=== PATIENT | female | born 1940 | race Caucasian/White ===

== ENCOUNTER → 2016-09-20 | Outpatient (CLI) | payer OTHER ==
[~2016-09-20] MED LIST: Amaryl2 MG PO; BUMETANIDE2 MG PO; ELIQUIS5 M1 PO; EXELON9.5 MG/24 TD; LANOXIN0.125 MG PO; METOPROLOL TART50 M1 PO; POTASSIUM CHLO10 ME4 PO; PROPAFENONE HC150 MG PO; SIMVASTATIN20 MG PO; VALIUM5 MG PO; ZYPREXA5 M1 PO; [UNRECOGNIZED DRUG - REMARK]
--- NOTE | ~2016-09-20 | PROC NOTE ---
[place], [place] PROCEDURE NOTE NAME: CHARLIE GALLARDO [facility] #: [id number] UNIT #: [id number] ROOM: DOCTOR: ROBERT AVELAR BIRTHDATE: [birth year] DOS: MODIFIED BARIUM SWALLOW BACKGROUND HISTORY AND MEDICAL HISTORY: The patient was accompanied by her daughter, who reported that the patient lives at home and does not leave the house often. Daughter reports she is on a regular diet, but that she noticed the patient coughed consistently during meals and especially in the night when she is sleeping. Daughter reports the patient eats well and maintains nutrition and hydration. Denies difficulty, but family reports she does cough with meal. Her daughter reports she might have had a mini TIA approximately 2 years ago, but patient was unaware and denied. Thus, daughter and patient deny any other neuro history. METHODS AND MATERIALS: The patient was seated upright in a chair. She was able to independently follow simple directions and administer thin liquids via cup and straw, pureed which was applesauce mixed with barium paste and a cracker. This patient was viewed in the lateral plane. The study was done in conjunction with Dr. Feldman. ORAL PHASE: The patient demonstrates mild to moderate oral weakness with ability to form and propel cohesive bolus on all consistencies. Minimal oral residue was noted, but she had good sensory awareness and it was not significant, it was more of a coating. The patient was able to adequately masticate with diagonal vertical mastication and form a bolus with solids. She had better control with thicker and solid consistencies as for as bolus formation and control to send it posteriorly from the oral to just pharyngeal phases. PHARYNGEAL PHASE: The patient demonstrated laryngeal penetration with all consistencies. It was transient with honey, puree and solid; however, with the thin liquid, it was a moderate amount of penetration, but a minimal amount stayed in laryngeal vestibule and fell below the vocal cords with patient immediately coughing and choking, which is considered aspiration. It was also suspected on nectar liquids as well; however, it was difficult as it may have been residue from the thin liquid. Laryngeal elevation and anterior movement were suspected to be the reason for the aspiration, which happened after the swallow, but the laryngeal penetration occurred during the swallow, which eventually fell below the cords and with aspiration with a thin and suspected with nectar liquid. A chin tuck did not decrease penetration and aspiration on the thin liquid. There was mild pharyngeal residue, but it was cleared minimally with cues for dry swallow, but it did not cause penetration and aspiration and was not judged to be dangerous to the patient's swallow. RECOMMENDATIONS AND IMPRESSION: It is recommended the patient to have extensive dysphagia therapy to improve oral motor and laryngeal elevation skills to decrease penetration and aspiration and increased base swallow and least restrictive diet. This was shared with patient and her daughter. The patient is also a candidate for the Sterling water protocol, which will be recommended to be implemented with dysphagia therapy. It is recommended to the patient and her [place], [place] PROCEDURE NOTE NAME: CHARLIE GALLARDO UNIT #: [id number] ROOM: DOCTOR: ROBERT AVELAR BIRTHDATE: [birth year] daughter and they were told to hold off until a phone call is made to physician and the contact physician regarding results of this study that the patient should have thickened liquids to a thick nectar to honey consistency in single small sip; however, hydration is the concern and a Sterling water protocol with skills therapy should be implemented as soon as possible. Regular diet is tolerated. There are no changes in solid food consistencies. The patient and daughter were educated regarding clinical signs and symptoms of pneumonia and they both denied the patient consistently gets pneumonia. The patient's daughter reported that she doubts the patient will comply for thickened liquids, but may comply for recommendations for therapy. Thank you for this referral. ROBERT AVELAR CM:PROCNOTE:PROCEDURE NOTE [id number] ROBERT AVELAR
== END | disposition home or self-care (01) ==
LOC: RAD/SH 07:30
DX: Z51.89 Encounter for other specified aftercare (principal); R13.10 Dysphagia, unspecified; R05 Cough; R09.89 Other specified symptoms and signs involving the circulatory and respiratory systems

== ENCOUNTER 2017-01-05 08:05 | Inpatient (IN) | payer OTHER ==
[~2017-01-05] VITALS: Ht 154.9 cm; Wt 84.0 kg
[2017-01-05] VITALS (11 sets, daily range): BP systolic 110–164; BP diastolic 31–57
--- NOTE | ~2017-01-05 | PR ---
[place], [place] PROGRESS NOTE [id number] #: [id number] ROOM: 410 DOCTOR: MAE ZUNIGA MD BIRTHDATE: [birth year] DOS: SUBJECTIVE: The patient is not doing . She is sitting up in her bed, eating her breakfast and she does not appear confused. OBJECTIVE: VITAL SIGNS: Graphic trend shows a pressure of 163/71, pulse of 73, respirations 20, temperature 98.0. LUNGS: Diminished breath sounds, clear. HEART: Irregular, controlled heart rate. ABDOMEN: Obese, soft. EXTREMITIES: Without any edema. ASSESSMENT AND PLAN: 1. Metabolic encephalopathy, possibly from underlying urinary tract infection. Urine culture is still pending. Urinalysis positive for nitrite and leukocyte, will add antibiotics. 2. Chronic atrial fibrillation with small vessel disease of the brain with adult failure to thrive. The patient will benefit from PT, OT. Social Service will be consulted for placement for a short term rehabilitation. MAE ZUNIGA MD CM:PNTRANS [id number] MAE ZUNIGA MD 01/06/17 0916 interface
--- NOTE | ~2017-01-05 | DS ---
[place], [place] DISCHARGE SUMMARY NAME: CHARLIE GALLARDO [facility] #: [id number] UNIT #: [id number] ROOM: 410 DOCTOR: VALENTINA ELLER MD BIRTHDATE: [birth year] DOS: 01/07/2017 DISCHARGE DIAGNOSES: 1. Urinary tract infection and cystitis with Escherichia coli growing in urine cultures. 2. Chronic atrial fibrillation. 3. Metabolic encephalopathy. 4. Leukocytosis from urinary infection. 5. 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 6. Type 2 diabetes mellitus. 7. Chronic atrial fibrillation, heart rate controlled with digoxin. The patient anticoagulated with apixaban. 7. Mixed hyperlipidemia. 8. Late onset of Alzheimer's type dementia. 9. Generalized anxiety disorder. 10. Chronic primary insomnia. The patient with mental confusion, agitation, generalized weakness and failure to thrive, presented with urinary infection and urine cultures grew Escherichia coli, which is to be treated with Ceftin. The patient underwent physical therapy and is being transferred to fci for continued rehabilitation. 11. Leukocytosis resulting from urinary infection. 12. Urinary infection with cystitis. Urine cultures growing Escherichia coli to be treated with Ceftin. 13. Type 2 diabetes mellitus. Blood sugars were monitored and treated. 14. Mixed hyperlipidemia treated with simvastatin. 15. Late onset of Alzheimer's type dementia treated with rivastigmine. 16. Chronic primary insomnia, treated with Restoril as needed. LABORATORY DATA: Urine culture results as mentioned above. CT of the head with no acute abnormality. Small vessel disease and age appropriate atrophy, BUN and creatinine 15 and 1.24. Please repeat CBC in 2 days and give the patient Augmentin. DISCHARGE MANAGEMENT: Give patent Ceftin 500 mg 2 times a day for a week, digoxin 125 mcg daily, glimepiride 2 mg b.i.d., simvastatin 20 mg daily, rivastigmine 3 mg b.i.d., Rythmol 150 mg b.i.d., olanzapine 5 mg b.i.d., metoprolol 50 mg b.i.d., apixaban 2.5 mg b.i.d., potassium chloride 10 mEq b.i.d., Bumex 1 mg b.i.d. and Xanax 0.5 mg b.i.d. p.r.n. can be used at night for sleep. Consult psychiatry. [place], [place] DISCHARGE SUMMARY [facility]: [id number] UN[facility] #: [id number] ROOM: 410 DOCTOR: VALENTINA ELLER MD BIRTHDATE: [birth year] VALENTINA ELLER MD CM:MARY [id number] VALENTINA ELLER MD 01/07/172000 interface
--- NOTE | ~2017-01-05 | WRIGHTHP ---
[place], [place] PATIENT HISTORY AND PHYSICAL EXAM NAME: CHARLIE GALLARDO [facility] #: [id number] UNIT #: [id number] ROOM: 410 DOCTOR: VALENTINA ELLER MD BIRTHDATE: [birth year] DOS: 01/05/2017 HISTORY OF PRESENT ILLNESS: A 76-year-old female with a past medical history of: 1. Type 2 diabetes mellitus. 2. Mixed hyperlipidemia. 3. Late onset Alzheimer's type dementia. 4. Benign essential hypertension. 5. COPD. 6. History of chronic lymphedema. 7. Paroxysmal atrial fibrillation. The patient anticoagulated on digoxin. The patient was brought over from home to the Emergency Department with recurrent falls, weakness, mental confusion, difficulty with walking to the bathroom even with assistance. There was increased mental confusion along with underlying history of dementia. The patient's family requested long-term placement. The patient was diagnosed as having adult failure to thrive, recurrent falls, dehydration, malnutrition, unsteady gait and bradycardia and recommended for admission for further management. After admission, the patient is pleasantly confused, oriented to person only, in no visible distress. REVIEW OF SYSTEMS: CARDIOVASCULAR SYSTEM: No recent complaints of any chest pains. LUNGS: No wheezing or shortness of breath. GASTROINTESTINAL: No nausea, vomiting, diarrhea or constipation. FAMILY HISTORY: Noncontributory. SOCIAL HISTORY: Denies recent cigarette smoking, alcohol and drug abuse. ALLERGIES: Known allergies to ASPIRIN, CODEINE, IODINE, SULFA, PENICILLIN AND EGGS. PHYSICAL EXAMINATION: GENERAL: Awake, alert, pleasantly confused, only oriented to person, in no visible distress, obese with chronic swelling in her legs and generalized weakness. HEENT AND NECK: Extraocular movements are intact. Sclerae are anicteric. Oral mucosa is moist and clean. No obvious facial weakness. Neck is supple without any lymphadenopathy. No thyromegaly. No JVD. No carotid arterial bruits. LUNGS: Clear to auscultation. No wheezing. No rhonchi. CARDIOVASCULAR SYSTEM: Heart rate is regular in rate and rhythm. S1 and S2 normally audible. No significant murmur or any other abnormal cardiac sounds. ABDOMEN: Soft, nontender. No obvious organomegaly. Bowel sounds are present. No obvious herniation. EXTREMITIES: Without significant cyanosis or ____. Warm to touch. CENTRAL NERVOUS SYSTEM: Alert and oriented x 3. Cranial nerves II-XII are intact. Speech is normal. The patient is able to move all extremities. Normal muscle strength. Deep tendon reflexes are equal on both sides. Plantars were downgoing. [place], [place] PATIENT HISTORY AND PHYSICAL EXAM NAME: CHARLIE GALLARDO UNIT #: [id number] ROOM: 410 DOCTOR: VALENTINA ELLER MD BIRTHDATE: [birth year] LABORATORY DATA: Chest x-ray without any acute changes. No acute abnormality on CT of the head. Urinalysis showing signs of urinary tract infection. BUN and creatinine 15 and 1.24, sugar 159. White cell count elevated to 16.7. IMPRESSION AND PLAN: 1. Increased mental confusion and delirium related to urinary tract infection, to be treated with antibiotics. 2. Urinary tract infection. Urine culture results are still pending. I will treat her with antibiotics. 3. Leukocytosis, apparently from urinary tract infection and cystitis, will be followed. 4. Adult failure to thrive, generalized weakness and recurrent falls. The [facility] consulted for long-term placement and Physical Therapy on consult. We are also taking bedsore and fall precautions. 5. Type 2 diabetes mellitus. Monitor blood sugars, continue home meds and treat accordingly. 6. Chronic atrial fibrillation with controlled heart rates with digoxin, some bradycardia. The patient on phototypesetting equipment monitor, treatment will be adjusted accordingly. The patient already on anticoagulation. 7. Mixed hyperlipidemia, treated with simvastatin, which is being continued. 8. Late onset Alzheimer's type dementia. The patient on rivastigmine. 9. Generalized anxiety disorder, treated with as needed Xanax. 10. Chronic primary insomnia, treated with as needed Restoril. VALENTINA ELLER MD CM:HISPHYS:PATIENT HISTORY AND PHYSICAL EXAMINATION [phone] VALENTINA ELLER MD 01/05/172103 interface
--- NOTE | 2017-01-05 08:32 | NUR ---
V.Nora. GIVEN BY FOR A DANIEL INSERTION, V.O. REPATED BACK TO AT THIS TIME. GABRIELA VALIENTE
[2017-01-05 08:40] LABS: BASO # 0.1 10*3/uL (0.0-0.1); BASO % 0.3 % (0.0-1.0); EOS % 0.2 % (1.0-4.0); HEMATOCRIT 43.5 % (37.0-47.0); HEMOGLOBIN 14.3 g/dl (12.0-16.0); LYMPH # 1.6 10*3/uL (1.3-4.4); LYMPH % 9.8 % (27.0-41.0); MEAN CELL VOLUME 86.3 fl (81.0-99.0); MEAN CORPUSCULAR HGB 28.4 pg (27.0-31.0); MEAN CORPUSCULAR HGB CONC 32.9 g/dl (33.0-37.0); MEAN PLATELET VOLUME 9.5 fl (9.6-12.3); MONO # 0.9 10*3/uL (0.1-1.0); MONO % 5.6 % (3.0-9.0); NEUT # 13.9 10*3/uL (2.3-7.9); NEUT % 83.6 % (47.0-73.0); PLATELET COUNT AUTOMATED 265 10*3/uL (130-400); RED BLOOD COUNT 5.04 10*6/uL (4.10-5.10); RED CELL DISTRI WIDTH 14.3 % (0-14.5); WHITE BLOOD COUNT 16.7 10*3/uL (4.8-10.8)
--- NOTE | 2017-01-05 08:40 | NUR ---
UPON INSERTION OF THE DANIEL PATIENT HAD A LARGE AMOUNT OF WHITE COTTAGE CHEESE DISCHARGE NOTED, DR. MRAIE MADE AWARE OF THIS SITUATION. GABRIELA VALIENTE
--- NOTE | 2017-01-05 08:54 | NUR ---
PATIENT TAKEN TO CAT SCAN AT THIS TIME. ROCCORN
[2017-01-05 08:58] LABS: ALBUMIN 2.8 gm/dl (3.1-4.5); ALKALINE PHOSPHATASE 45 U/L (45-117); BUN 15 mg/dl (7-24); CHLORIDE 101 mmol/L (98-107); CREATININE 1.24 mg/dL (0.55-1.02); POTASSIUM 3.6 mmol/L (3.5-5.1); SGOT/AST 43 IU/L (3-35); SGPT/ALT 24 U/L (12-78); SODIUM 138 mmol/L (136-145); TOTAL PROTEIN 7.3 gm/dL (6.4-8.2)
[2017-01-05 08:59] LABS: TROPONIN I < 0.015 ng/ml (<0.045)
[2017-01-05 09:07] LABS: BILIRUBIN NEGATIVE (NEGATIVE); BLOOD TRACE-INTACT (NEGATIVE); CLARITY SL CLOUDY (CLEAR); COLOR YELLOW (YELLOW); GLUCOSE NEGATIVE (NEGATIVE); KETONE NEGATIVE (NEGATIVE); LEUKO ESTERASE 2+ (NEGATIVE); NITRITE POSITIVE (NEGATIVE); PH 5.5 (5.0-9.0); SPECIFIC GRAVITY <= 1.005 (1.005-1.030)
[2017-01-05 09:18] LABS: BACTERIA 3+
[2017-01-05 09:19] LABS: WBC 21-30 wbc/hpf (0-5)
--- NOTE | 2017-01-05 09:25 | NUR ---
PATIENT IS SLEEPING IN BED AT THIS TIME, RESPIRATIONS ARE EASY AND NONLABOERD, SKIN IS PALE, WARM, AND DRY, PATIENT IS EASILY WOKEN, CALL LIGHT IN REACH OF THE PATIENT, CONTINUING TO MONITOR THE PATIENT. GABRIELA VALIENTE
--- NOTE | 2017-01-05 10:08 | NUR ---
PATIENT IS SLEEPING IN BED, FAMILY IS PRESENT, SKIN IS PALE, WARM, AND DRY, RESPIRAITONS ARE EASY AND NONLABORED, PATIENT IS RESTING IN BED, CALL LIGHT IN REACH OF THE PATIENT, CONTINUING TO MONITOR THE PATIENT. GABRIELA VALIENTE
--- NOTE | 2017-01-05 11:00 | NUR ---
PATIENT DOES HAVE A SIGNIFICANT CARDIAC HX, INCLUDING BYPASS. GABRIELA VALIENTE
--- NOTE | 2017-01-05 12:01 | NUR ---
PATIENT TAKEN TO THE FLOOR BY JULIETTE DUNNE, PLACED IN ROOM 410-1. GABRIELA VALIENTE
--- NOTE | 2017-01-05 12:02 | NUR ---
Time: 1202 A 76 year old F admitted to 4E under services of DR. DAPHNIE GILLESPIE,VALENTINA Weiss Pt. arrived via bed from ER. Chief complaint: FALLS. ISAEL BLACKMON A
[2017-01-05] MEDS ORDERED: RESTORIL30 M1 PO (12:11)
[2017-01-05] MEDS ORDERED: PROPAFENONE HC150 MG PO (12:16)
[2017-01-05] MEDS ORDERED: RIVASTIGMINE PO (12:19)
[2017-01-05] MEDS ORDERED: XANAX0.5 MG PO (12:21)
[2017-01-05] MEDS ORDERED: VITAMIN B-121000 MC1 PO (12:28)
--- NOTE | 2017-01-05 12:29 | NUR ---
PT'S DTR HERE WITH HER & HAS ALL HOME MEDICATIONS. MED REC UPDATED & VERIFIED VIA HOME LIST.
--- NOTE | 2017-01-05 16:58 | NUR ---
DR ELLER IN TO SEE PT.
--- NOTE | 2017-01-05 17:20 | NUR ---
DR. ELLER IN TO SEE PT. SEE NEW ORDERS.
--- NOTE | 2017-01-05 20:00 | NUR ---
ASSUMED CARE OF PATIENT. ASSESSMENT COMPLETE. RESTING IN BED. NO VOICED COMPLAINTS. BED ALARM ON. CALL LIGHT IN REACH. WILL CONTINUE TO MONITOR.
[2017-01-06] VITALS: BP 163/71
--- NOTE | 2017-01-06 00:03 | NUR ---
NEW IV PLACED IN LEFT AC AFTER PT PULLED OTHER ONE OUT. 1 ATTEMPT, PT TOLERATED WELL.
--- NOTE | 2017-01-06 02:00 | NUR ---
SLEEPING. RESP EASY AND NONLABORED ON 3L NC. NO DISTRESS NOTED. CALL LIGHT IN REACH. BED ALARM ON. WILL CONTINUE TO MONITOR.
[2017-01-06 08:00] VITALS: BP 151/49
--- NOTE | 2017-01-06 11:19 | NUR ---
Received snf order, in to see patient, charan Llamas at bedside. Discussed order for snf stay, family feels with her falling and home and they are unable to provide 24 hour care she should be referred. Family/patient chose [facility]. Contacted Cami, she is checking to see if facility accepts [employer] medicare.
--- NOTE | 2017-01-06 11:44 | NUR ---
PHYSICAL THERAPY PAtient evaluated on 4, full evaluation to follow. Continue wt PT as per plan of care with fall, mod (A), 02 and alarm precautions. Will require SNF for impaired mobility in order to return to home at (I) PLOF. PAtient is moderate complexity via chart review, tests and evaluation: [id number]. Thank you for this referral. Bessie ivy,PT
--- NOTE | 2017-01-06 11:45 | NUR ---
[facility] does not accept [employer] insurance. Contacted the [facility] in [place], who also stated they do not accept [employer] but they will call and see if they can get a one time contract for this patient. Faxed clincals, will follow
[2017-01-06 12:00] VITALS: BP 133/51
--- NOTE | 2017-01-06 12:05 | NUR ---
Occupational [employer] evaluation completed on 4 with full eval to follow. Precautions include fall risk, impaired ADLs, mobility and impaired safety, moderate complexity level 28665. Recommend OT per POC and SNF upon d/c. If refuses then 24 hr supervision and assist. Thank you for this referral. Margo Shea OTR/L
--- NOTE | 2017-01-06 15:16 | NUR ---
[facility] and the [facility] both [facility] of [facility]. Spoke with daughter who asked a referral be made to any of the [facility]. Contacted [facility] and faxed referral, waiting on acceptance.
[2017-01-06 16:00] VITALS: BP 150/42
--- NOTE | 2017-01-06 19:23 | NUR ---
TOOK DUTY OF NURSING THIS PT BACK TO HEALTH.
[2017-01-06 20:00] VITALS: BP 139/67
--- NOTE | 2017-01-06 20:00 | NUR ---
ASSUMED CARE OF PATIENT. ASSESSMENT COMPLETE. RESTING IN BED. BED ALARM ON. CALL LIGHT IN REACH. WILL CONTINUE TO MONITOR.
--- NOTE | 2017-01-06 20:27 | NUR ---
PT HR 140'S. CALLED AND SPOKE TO DR ZUNIGA. 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
--- NOTE | 2017-01-06 20:59 | NUR ---
IV DIGOXIN GIVEN PER ORDER. SINUS TACH RATE 146 PER CM CURRENTLY.
--- NOTE | 2017-01-06 21:01 | NUR ---
ORDERS FOR DIGOXIN RECIEVED. PT MGIVEN DIGOXIN. PT'S HR STILL SINUS TACHY AT 146 BPM AT 2100. WILL CONINUE TO MONITOR PT.
--- NOTE | 2017-01-06 21:20 | NUR ---
DR ZUNIGA MADE AWARE THAT PT HR ST HIGH 140'S. ORDER RECEIVED FOR NS @ 100 ML/HR FOR 24 HOURS
[2017-01-07] VITALS: BP 109/61
--- NOTE | 2017-01-07 02:00 | NUR ---
SLEEPING. RESP EASY AND NONLABORED. 3L NC INTACT. CM INTACT. IVF INFUSING. CALL LIGHT IN REACH. BED ALARM ON. WILL CONTINUE TO MONITOR.
[2017-01-07 08:00] VITALS: BP 136/58
--- NOTE | 2017-01-07 11:30 | NUR ---
Patient accepted to [facility] in [place]. Precert started, waiting on auth.
--- NOTE | 2017-01-07 12:29 | NUR ---
PHYSICAL THERAPY Pt seen for her therapy session and was up in her bedside chair wanting to go back to bed. Transfer sit/stand with verbal cueing for transfer up into standing balance MOD A X 1, verbal cueing for pivot and stand at bedside, another standing balance MOD A X 1. Then gait forward and back, side step and stand with much cueing and MOD/MAX A X 1. Iman wanting to go back to bed at this time. Transfer back supine MAX A X 1, bed alarm on. Pt with impaired mobility, On 3 L o2. [employer] BILL THREAD SINGER.
--- NOTE | 2017-01-07 12:41 | NUR ---
Completed hospital exemption online in [employer] system, waiting on precert.
--- NOTE | 2017-01-07 14:18 | NUR ---
PT MEDICATED WITH PO XANAX PER PRN ORDER FOR ANXIETY AND AGITATION. WILL MONITOR EFFECTIVENESS. 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
--- NOTE | 2017-01-07 14:50 | NUR ---
received authorization for patient to go to [facility] [place] Dr. Lopez.
[2017-01-07 16:00] VITALS: BP 157/58
--- NOTE | 2017-01-07 17:21 | NUR ---
HERE AND NOTIFIED REGARDING NO IV ACCESS AT THIS TIME. OKAY TO LEAVE OUT. PATIENT WILL BE DISCHARGED TO [facility].
[2017-01-07] MEDS ORDERED: AMINOPHYLLIN200 MG PO (17:29)
--- NOTE | 2017-01-07 17:48 | NUR ---
REPORT GIVEN TO NURSE AT [address]
[2017-01-07 20:00] VITALS: BP 110/45
--- NOTE | 2017-01-07 21:40 | NUR ---
Discharge instructions reviewed with patient. Patient receptive and verbalizes understanding. Written instructions SENT WITH PATIENT VIA AMBULANCE CREW. [facility] HERE TO TRANSPORT PATIENT AND BELONINGS TO [facility]
--- NOTE | 2017-01-08 07:28 | NUR ---
PHYSICAL THERAPY CO-SIGN I approve of the Phyical Therapy notes written above. CARMELLA SAAVEDRA PT
== END 2017-01-07 21:40 | disposition other institution (70) | DRG 689 ==
LOC: ED 08:05 → 4E 11:37
PROVIDERS: Emergency Medicine; ADMIT Internal Medicine
DX: N30.90 Cystitis, unspecified without hematuria (principal); G93.41 Metabolic encephalopathy; E46 Unspecified protein-calorie malnutrition; I27.2 Other secondary pulmonary hypertension; I48.0 Paroxysmal atrial fibrillation; I48.2 Chronic atrial fibrillation; G30.1 Alzheimer's disease with late onset; J44.9 Chronic obstructive pulmonary disease, unspecified; I10 Essential (primary) hypertension; B96.20 Unspecified Escherichia coli [E. coli] as the cause of diseases classified elsewhere; E11.9 Type 2 diabetes mellitus without complications; F02.80 Dementia in other diseases classified elsewhere, unspecified severity, without behavioral disturbance, psychotic disturbance, mood disturbance, and anxiety; R62.7 Adult failure to thrive; E86.0 Dehydration; S90.02XA Contusion of left ankle, initial encounter; W18.39XA Other fall on same level, initial encounter; E78.2 Mixed hyperlipidemia; F41.1 Generalized anxiety disorder; F51.04 Psychophysiologic insomnia; Z88.0 Allergy status to penicillin; Z88.2 Allergy status to sulfonamides; Z88.5 Allergy status to narcotic agent; Z91.041 Radiographic dye allergy status; Z91.012 Allergy to eggs; Z79.899 Other long term (current) drug therapy; Z90.710 Acquired absence of both cervix and uterus; Z98.41 Cataract extraction status, right eye; Y93.89 Activity, other specified; Y92.89 Other specified places as the place of occurrence of the external cause; Y99.8 Other external cause status; Z88.6 Allergy status to analgesic agent; Z68.34 Body mass index [BMI] 34.0-34.9, adult